=== PATIENT | male | born 1995 | race Caucasian/White ===

== ENCOUNTER 2019-12-01 21:06 | Emergency (ER) | payer OTHER ==
[~2019-12-01] VITALS: Ht 188 cm; Wt 92.7 kg
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
[2019-12-01 23:14] VITALS: BP 152/84
== END 2019-12-01 23:17 | disposition home or self-care (01) ==
LOC: M ED 21:06
DX: H72.92 Unspecified perforation of tympanic membrane, left ear (principal); F17.210 Nicotine dependence, cigarettes, uncomplicated